=== PATIENT | male | born 1955 | race Caucasian/White ===

== ENCOUNTER 2024-07-25 08:43 | Emergency (ER) | payer MEDICARE, SELFPAY ==
[2024-07-25 08:55] VITALS: BP 152/85
--- NOTE | 2024-07-25 09:49 | ED.MUSCINJ ---
HPI-Injury
General
Chief Complaint: Musculo-Skeletal Complaint
Source: patient
Exam Limitations: none
Time Seen by Provider: 07/25/24 09:19
History of Present Illness-Injury
Initial Injury comments:
68-year-old male presents complaining of worsening neck pain and stiffness over the past 3 days. Of note, patient went camping in a camper a week ago. His grandchild that was with him ended up getting diagnosed with 5th disease. He ended up
getting a runny nose and sore throat that was lasting only 2 days which is since resolved. He denies a fever or headache currently. No chest pain or shortness of breath. No known injury. No paresthesias or weakness to the arms or legs. He has
been using Tylenol and ibuprofen as well as heat and ice without significant relief. No prior injury to the neck.
Phy Exam
Physical Exam
Physical Exam:
General: Well-appearing male no acute respiratory distress
HEENT: Normocephalic atraumatic
Heart: Regular rate and rhythm
Lungs: Clear no wheeze
Musculoskeletal exam: Patient has limited rotation to the left and right of the cervical spine. He has good flexion but extension is limited as well.
Neurologic exam: Alert and oriented no meningeal signs
Injury Course
Orders/Labs/Results
Orders:
Orders
07/25/24 09:43
CR Cervical Spine 2 or 3 Vw Urgent
Comment:
Reason For Exam: neck pain
MDM/Problems Addressed
Differential Diagnosis Includes:
Neck stiffness and pain. Consider muscular strain versus spasm. Consider underlying degenerative disc disease. No fever or signs of infectious source to suggest meningitis. No chest pain. X-ray cervical spine pending
*Critical Care Note
Total Time (30-74mins, 75-104mins- exclusive of procedures): Not Applicable
Update Note
Update Note:
X-rays demonstrate degenerative disc disease at C5-C6 with straightening of the normal curvature. No acute fracture otherwise. I suspect the reason for today's visit is cervical strain with underlying spasm. He will continue with ibuprofen and
Tylenol will add muscle relaxer if needed for spasm. Stable for discharge
ED Attending Note
-
Portions of this chart may have been created with voice recognition software.� Occasional wrong word or��sound alike� substitutions may have occurred due to the inherent limitations of voice recognition software.
Discharge Plan
Departure
Patient Disposition: Home (Routine Discharge)
Date of Disposition: 07/25/24
Time of Disposition: 11:24
Patient with high blood pressure during this ER visit?: No
Discharge Problem:
Cervical strain, acute
Instructions: Muscle and Bone Pain (DC)
Prescriptions:
New
methocarbamol 500 mg tablet
500 mg PO TID PRN (Reason: spasm) Qty: 14 0RF
No Action
atorvastatin [Lipitor] 10 MG tablet
10 mg PO HS
levothyroxine 75 MCG tablet
75 mcg PO DAILY AT 0700
ibuprofen [Advil] 200 MG tablet
200 mg PO QIDPRN PRN (Reason: pain)
sennosides [senna] 1 TABLET tablet
2 tab PO BID 0RF
acetaminophen 325 MG tablet
650 mg PO QID 0RF
polyethylene glycol 3350 17 GRAMS powder in packet
17 grams PO DAILY 0RF
tramadol 50 MG tablet
1 - 2 tab PO Q4HPRN PRN (Reason: moderate-severe pain) Qty: 60 0RF
Rx Instructions:
Do not exceed 400 mg with him 24 hours
levothyroxine 75 MCG tablet
75 mcg PO DAILY AT 0700 0RF
famotidine 20 MG tablet
20 mg PO HS Qty: 30 0RF
aspirin 325 MG tablet,delayed release (DR/EC)
325 mg PO DAILY 0RF
docusate sodium 100 MG capsule
100 mg PO BID 0RF
alum-mag hydroxide-simeth [Mag-Al Plus] 30 ML suspension
30 ml PO Q4HPRN PRN (Reason: INDIGESTION) 0RF
Referrals:
Abdon Warner MD [Family Provider, Family Practice]
Ever Simpson MD [Active, Orthopedics]
Activity Restrictions/Additional Instructions:
Continue with warm compresses. Use ibuprofen and Tylenol as needed. Use muscle relaxer as needed. Return if worse otherwise for follow-up with nonoperative back pain specialist
Interventions
Interventions:
*Risk Screen - Suicide Last Done: 07/25/24 08:55
*General Assessment Last Done: 07/25/24 10:49
*Neglect/Abuse Screening Last Done: 07/25/24 08:55
ED-Musculoskeletal Assessment Last Done: 07/25/24 10:49
Discharge Date and Time
Print Language: VENEZUELAN
[2024-07-25 11:42] VITALS: BP 126/68
== END 2024-07-25 11:43 | disposition home or self-care (01) ==
LOC: EMR 08:43
PROVIDERS: EMERGENCY PHYSICIAN Student in an Organized Health Care Education/Training Program; FAMILY PHYSICIAN Family Medicine
DX: S16.1XXA Strain of muscle, fascia and tendon at neck level, initial encounter (principal); X58.XXXA Exposure to other specified factors, initial encounter
CPT/HCPCS: 99283; 72040

== ENCOUNTER → 2024-08-10 06:41 | Outpatient (REF) | payer MEDICARE, SELFPAY | LOC: PAVMRI 06:41 | PROVIDERS: ATTENDING PHYSICIAN Physician Assistant; FAMILY PHYSICIAN Family Medicine | DX: M54.12 Radiculopathy, cervical region (principal) | CPT/HCPCS: 72141 ==